=== PATIENT | male | born 1930 | race Caucasian/White ===

== ENCOUNTER 2016-08-05 10:06 | Inpatient (IN) | payer MEDICARE, BC ==
[~2016-08-05] VITALS: Ht 172.7 cm; Wt 43.2 kg
[~2016-08-05 10:06] MED LIST: ASPIRIN 32325 MG/TAB PO; FOLIC ACID800 MCG PO; LASIX 40MG TABL40 MG PO; MULTIPLE VITAMI1 CAP PO; NITROSTAT0.4 MG/TAB SL; PRAVACHOL 20MG20 MG PO; TENORMIN 2525 MG/TAB PO; VITAMIN C500 MG PO; VITAMIN D1000 IU PO
[2016-08-05] MEDS ORDERED: ASPIRIN 32325 MG/TAB PO (10:33)
[2016-08-05] MEDS ORDERED: IRON TABLETS325 MG PO (10:34)
[2016-08-05] MEDS ORDERED: CALCITRIOL PO (10:34)
[2016-08-05] MEDS ORDERED: FOLIC ACID800 MCG PO (10:35)
[2016-08-05] MEDS ORDERED: LASIX 20MG TABL20 MG PO (10:35)
[2016-08-05] MEDS ORDERED: NITROSTAT0.4 MG/TAB SL (10:35)
[2016-08-05] MEDS ORDERED: PRAVACHOL 20MG20 MG PO (10:35)
[2016-08-05] MEDS ORDERED: MULTIPLE VITAMI1 CAP PO (10:35)
[2016-08-05 10:47] LABS: MEAN CELL VOLUME 107 fl (80.0-100.0); MEAN CORPUSCULAR HGB CONC 31 g/dl (33.0-37.0); MEAN PLATELET VOLUME 10.8 fl (7.4-10.4); PLATELET COUNT 151 K/mm3 (130-400); RED BLOOD COUNT 3.08 M/mm3 (4.20-5.60); REDCELL DISTRIBUTION WIDTH-CV 13.2 % (11.5-14.5); WHITE BLOOD COUNT 7.2 K/mm3 (4.8-10.8)
[2016-08-05 10:50] LABS: INR 1.1 (0.8-3.0); PROTHROMBIN TIME 11.9 SECONDS (9.7-12.8)
[2016-08-05 10:53] LABS: HEMATOCRIT 32.9 % (42.0-52.0); HEMOGLOBIN 10.1 g/dl (13.5-18.0); MEAN CORPUSCULAR HEMOGLOBIN 33 pg (27.0-31.0); PARTIAL THROMBOPLASTIN TIME 23.9 SECONDS (26.0-37.0)
[2016-08-05 10:54] LABS: ADD PATHOLOGY DIFF REVIEW NO
[2016-08-05 11:03] LABS: ADJUSTED CALCIUM 9.2 mg/dL (8.4-10.2); ALANINE AMINOTRANSFERASE 26 U/L (21-72); ALBUMIN 3.8 gm/dL (3.5-5.0); ALKALINE PHOSPHATASE 83 U/L (50-136); ANION GAP 12 mmol/L (7-16); BILIRUBIN,TOTAL 0.9 mg/dL (0.0-1.0); BLOOD UREA NITROGEN 90 mg/dL (9-20); CARBON DIOXIDE 34 mmol/L (22-30); CHLORIDE 98 mmol/L (98-107); CREATINE KINASE 174 U/L (55-170); CREATININE, serum 2.37 mg/dL (0.66-1.25); GLUCOSE 99 mg/dL (74-106); LIPASE 122 U/L (23-300); POTASSIUM 4.6 mmol/L (3.4-5.0); SODIUM 144 mmol/L (137-145); TOTAL PROTEIN 7.4 gm/dL (6.4-8.2)
[2016-08-05 11:06] LABS: C-REACTIVE PROTEIN < 0.5 mg/dL (0.0-0.9)
[2016-08-05 11:13] LABS: B-TYPE NATRIURETIC PEPTIDE 2880 pg/mL (0-450)
[2016-08-05 11:16] LABS: BAND 2 % (0-10); EOSINOPHIL 1 % (0-4); NEUTROPHILS 69 % (42.0-75.2); PLATELET ESTIMATE NORMAL (NORMAL); TOTAL CELLS COUNTED 100
[2016-08-05 11:18] LABS: TROPONIN-I 0.257 ng/mL (0.000-0.034)
[2016-08-05 14:18] VITALS: BP 131/70; PULSE 72; TEMP 98
[2016-08-05 16:42] VITALS: BP 116/57; PULSE 69; TEMP 97.2
[2016-08-05 19:23] VITALS: BP 118/58; PULSE 69; TEMP 98.3
[2016-08-05 23:28] VITALS: BP 105/57; PULSE 69; TEMP 97.9
[2016-08-06 03:49] VITALS: BP 129/64; PULSE 70; TEMP 98
[2016-08-06 07:29] VITALS: BP 128/85; PULSE 74; TEMP 98
[2016-08-06 08:48] LABS: MEAN CELL VOLUME 107 fl (80.0-100.0); MEAN CORPUSCULAR HGB CONC 31 g/dl (33.0-37.0); MEAN PLATELET VOLUME 10.9 fl (7.4-10.4); PLATELET COUNT 163 K/mm3 (130-400); RED BLOOD COUNT 3.38 M/mm3 (4.20-5.60)
[2016-08-06 08:49] LABS: HEMOGLOBIN 11.3 g/dl (13.5-18.0); MEAN CORPUSCULAR HEMOGLOBIN 33 pg (27.0-31.0)
[2016-08-06 09:08] LABS: CALCIUM 9.4 mg/dL (8.4-10.2); CREATININE, serum 2.14 mg/dL (0.66-1.25); POTASSIUM 4.3 mmol/L (3.4-5.0)
[2016-08-06 09:39] LABS: THYROID STIMULATING HORMONE 2.8 uIU/mL (0.465-4.680)
[2016-08-06 11:54] VITALS: BP 131/65
[2016-08-06 12:35] LABS: PSA-TOTAL 0.47 ng/mL (0-4)
[2016-08-06 15:00] VITALS: BP 114/45; PULSE 61; TEMP 98.4
[2016-08-06 19:58] VITALS: BP 111/64; PULSE 75; TEMP 98.2
[2016-08-06 23:58] VITALS: BP 121/67; PULSE 70; TEMP 98.6
[2016-08-07 03:18] VITALS: BP 124/62; PULSE 72; TEMP 98.4
[2016-08-07 07:47] VITALS: BP 101/60; PULSE 80; TEMP 98.2
[2016-08-07 08:14] LABS: MEAN CELL VOLUME 105 fl (80.0-100.0); MEAN CORPUSCULAR HGB CONC 32 g/dl (33.0-37.0); MEAN PLATELET VOLUME 11.4 fl (7.4-10.4); PLATELET COUNT 158 K/mm3 (130-400); RED BLOOD COUNT 3.11 M/mm3 (4.20-5.60); WHITE BLOOD COUNT 5.6 K/mm3 (4.8-10.8)
[2016-08-07 08:20] LABS: ADJUSTED CALCIUM 9.4 mg/dL (8.4-10.2); ALBUMIN 3.5 gm/dL (3.5-5.0); CREATININE, serum 2.12 mg/dL (0.66-1.25); POTASSIUM 4.2 mmol/L (3.4-5.0); TOTAL PROTEIN 7.1 gm/dL (6.4-8.2)
[2016-08-07 08:21] LABS: HEMATOCRIT 32.6 % (42.0-52.0); HEMOGLOBIN 10.5 g/dl (13.5-18.0); MEAN CORPUSCULAR HEMOGLOBIN 34 pg (27.0-31.0)
[2016-08-07 12:25] VITALS: BP 93/51; PULSE 71; TEMP 97.6
[2016-08-07 13:58] LABS: ALBUMIN 3.7 gm/dL (3.5-5.0); CALCIUM 9.2 mg/dL (8.4-10.2); CREATININE, serum 2.23 mg/dL (0.66-1.25); PHOSPHOROUS 3.5 mg/dL (2.5-4.5)
[2016-08-07 17:27] VITALS: BP 128/66; PULSE 78; TEMP 97.6
[2016-08-07 19:57] VITALS: BP 123/59; PULSE 71; TEMP 97.5
[2016-08-08] VITALS (8 sets, daily range): BP systolic 107–124; BP diastolic 33–66; PULSE 54–90; TEMP 98–99
[2016-08-08 02:24] LABS: PH 6 (5-8); SQUAMOUS EPITHELIAL None Seen /hpf; URINE APPEARANCE Turbid; URINE BACTERIA Many /hpf; URINE BILIRUBIN Negative (NEGATIVE); URINE BLOOD 1+ (NEGATIVE); URINE COLOR Yellow; URINE GLUCOSE Negative (NEGATIVE); URINE KETONE Negative (NEGATIVE); URINE RBC 0-2 /hpf; URINE UROBILINOGEN Negative (NEGATIVE); URINE WBC >50 /hpf
[2016-08-08 07:59] LABS: ALBUMIN 3.3 gm/dL (3.5-5.0); CALCIUM 9.1 mg/dL (8.4-10.2); CREATININE, serum 2.32 mg/dL (0.66-1.25); POTASSIUM 3.9 mmol/L (3.4-5.0)
[2016-08-08 18:04] LABS: ADJUSTED CALCIUM 9.4 mg/dL (8.4-10.2); ALBUMIN 3.4 gm/dL (3.5-5.0); CALCIUM 8.9 mg/dL (8.4-10.2); CREATININE, serum 2.3 mg/dL (0.66-1.25); TOTAL PROTEIN 6.8 gm/dL (6.4-8.2)
[2016-08-08 18:24] LABS: TROPONIN-I 0.477 ng/mL (0.000-0.034)
[2016-08-09 03:04] VITALS: BP 146/72; PULSE 77; TEMP 97.1
[2016-08-09 04:24] VITALS: BP 124/56; PULSE 65; TEMP 97.6
[2016-08-09 08:14] LABS: ALBUMIN 3.2 gm/dL (3.5-5.0); CALCIUM 8.5 mg/dL (8.4-10.2); CREATININE, serum 2.14 mg/dL (0.66-1.25); PHOSPHOROUS 4.9 mg/dL (2.5-4.5); POTASSIUM 3.4 mmol/L (3.4-5.0)
[2016-08-09 11:28] VITALS: BP 101/44; PULSE 74; TEMP 97.5
[2016-08-09 15:49] VITALS: BP 150/56; PULSE 81; TEMP 98.4
[2016-08-09 19:41] VITALS: BP 109/46; PULSE 75; TEMP 97.8
[2016-08-09 23:59] VITALS: BP 111/72; PULSE 79; TEMP 98.2
[2016-08-10] VITALS (7 sets, daily range): BP systolic 90–117; BP diastolic 40–54; PULSE 59–86; TEMP 97.5–983.9
[2016-08-10 06:01] LABS: BILIRUBIN,TOTAL 0.6 mg/dL (0.0-1.0); CALCIUM 8.2 mg/dL (8.4-10.2); CREATININE, serum 2.09 mg/dL (0.66-1.25); PHOSPHOROUS 3.9 mg/dL (2.5-4.5); POTASSIUM 3.7 mmol/L (3.4-5.0); TOTAL PROTEIN 6.2 gm/dL (6.4-8.2)
[2016-08-10 06:39] LABS: TROPONIN-I 0.246 ng/mL (0.000-0.034)
[2016-08-11 03:59] VITALS: BP 121/55; PULSE 80; TEMP 98.2
[2016-08-11 05:40] LABS: MEAN CELL VOLUME 108 fl (80.0-100.0); MEAN CORPUSCULAR HGB CONC 31 g/dl (33.0-37.0); MEAN PLATELET VOLUME 11.3 fl (7.4-10.4); PLATELET COUNT 135 K/mm3 (130-400); RED BLOOD COUNT 2.36 M/mm3 (4.20-5.60); REDCELL DISTRIBUTION WIDTH-CV 13.1 % (11.5-14.5); WHITE BLOOD COUNT 5.5 K/mm3 (4.8-10.8)
[2016-08-11 05:44] LABS: HEMATOCRIT 25.4 % (42.0-52.0); HEMOGLOBIN 7.9 g/dl (13.5-18.0); MEAN CORPUSCULAR HEMOGLOBIN 33 pg (27.0-31.0)
[2016-08-11 05:52] LABS: ADJUSTED CALCIUM 9.2 mg/dL (8.4-10.2); ALBUMIN 2.9 gm/dL (3.5-5.0); BILIRUBIN,TOTAL 0.6 mg/dL (0.0-1.0); CALCIUM 8.3 mg/dL (8.4-10.2); CREATININE, serum 1.81 mg/dL (0.66-1.25); PHOSPHOROUS 2.7 mg/dL (2.5-4.5); POTASSIUM 3.4 mmol/L (3.4-5.0); TOTAL PROTEIN 6.1 gm/dL (6.4-8.2)
[2016-08-11 08:55] VITALS: BP 110/54; PULSE 85; TEMP 98.2
[2016-08-11 11:24] LABS: MAGNESIUM 2.1 mg/dL (1.6-2.3)
[2016-08-11 11:28] LABS: ARTERIAL BLD GAS O2 SATURATION 92.9 % (92-100); ARTERIAL BLD GAS TCO2 CT 32.5; ARTERIAL BLOOD GAS BASE EXCESS 7.6 (-2-2); ARTERIAL BLOOD GAS HCO3 31.3 meq/L (22-26); ARTERIAL BLOOD GAS PHT 7.51 C (7.35-7.45); ARTERIAL BLOOD GAS PO2 63.3 mmHg (80-100); ARTERIAL BLOOD GAS PO2T 63.3 (80-100); ARTERIAL BLOOD GAS pH 7.51 (7.35-7.45); ATS? YES; OXYHEMOGLOBIN 92.2 %
[2016-08-11 12:12] VITALS: BP 101/43; PULSE 74; TEMP 98.2
[2016-08-11 15:16] VITALS: BP 17/50; PULSE 80; TEMP 97.8
[2016-08-11 20:43] VITALS: BP 109/51; PULSE 78; TEMP 97.3
[2016-08-11 23:13] VITALS: BP 116/51; PULSE 76; TEMP 98.1
[2016-08-12 03:24] VITALS: BP 94/51; PULSE 75; TEMP 98.2
[2016-08-12 06:59] LABS: VITAMIN E 8.8 mg/L (())
[2016-08-12 09:16] VITALS: BP 118/55; PULSE 71; TEMP 97.2
[2016-08-12] MEDS ORDERED: LEVAQUIN 2250 MG/TAB PO (10:47)
[2016-08-12] MEDS ORDERED: MEGACE ORAL40 MG/ML PO (10:49)
[2016-08-12] MEDS ORDERED: TOPROL XL 25MG25 MG PO (10:55)
[2016-08-12 13:13] VITALS: BP 113/43; PULSE 70; TEMP 97.6
[2016-08-12 13:26] LABS: BASO % 0.2 % (0.0-2.0); EOS % 0.5 % (0-4.0); GRAN # 3.8 (1.4-6.5); GRAN % 65.1 % (42.2-75.2); LYMPH # 1.4 (1.2-3.4); MEAN CELL VOLUME 109 fl (80.0-100.0); MEAN CORPUSCULAR HGB CONC 31 g/dl (33.0-37.0); MEAN PLATELET VOLUME 11.4 fl (7.4-10.4); MONO # 0.6 (0.1-0.6); MONO % 9.9 % (1.7-9.3); PLATELET COUNT 155 K/mm3 (130-400); RED BLOOD COUNT 2.61 M/mm3 (4.20-5.60); REDCELL DISTRIBUTION WIDTH-CV 13.1 % (11.5-14.5); WHITE BLOOD COUNT 5.9 K/mm3 (4.8-10.8)
[2016-08-12 13:27] LABS: HEMATOCRIT 28.5 % (42.0-52.0); HEMOGLOBIN 8.7 g/dl (13.5-18.0); MEAN CORPUSCULAR HEMOGLOBIN 33 pg (27.0-31.0)
[2016-08-12 13:56] LABS: ALBUMIN 3.2 gm/dL (3.5-5.0); CALCIUM 8.8 mg/dL (8.4-10.2); CREATININE, serum 1.73 mg/dL (0.66-1.25); POTASSIUM 3.8 mmol/L (3.4-5.0)
[2016-08-12 16:18] VITALS: BP 113/43; PULSE 70; TEMP 97.6
== END 2016-08-12 17:56 | DRG 291 ==
LOC: COL.ER 10:06 → MEDICAL 11:59
PROVIDERS: Emergency Medicine; Internal Medicine; Internal Medicine Cardiovascular Disease; Internal Medicine Nephrology; Nurse Practitioner Family
PROC: 0DH67UZ Insertion of Feeding Device into Stomach, Via Natural or Artificial Opening (ICD-10-PCS; principal; 2016-08-08)
DX: I50.43 Acute on chronic combined systolic (congestive) and diastolic (congestive) heart failure (principal); E43 Unspecified severe protein-calorie malnutrition; J18.9 Pneumonia, unspecified organism; N17.9 Acute kidney failure, unspecified; Z68.1 Body mass index [BMI] 19.9 or less, adult; N39.0 Urinary tract infection, site not specified; E87.3 Alkalosis; S22.41XA Multiple fractures of ribs, right side, initial encounter for closed fracture; N18.3 Chronic kidney disease, stage 3 (moderate); D63.1 Anemia in chronic kidney disease; D46.9 Myelodysplastic syndrome, unspecified; I25.10 Atherosclerotic heart disease of native coronary artery without angina pectoris; Z95.1 Presence of aortocoronary bypass graft; Z95.5 Presence of coronary angioplasty implant and graft; K11.7 Disturbances of salivary secretion; N32.0 Bladder-neck obstruction; B96.20 Unspecified Escherichia coli [E. coli] as the cause of diseases classified elsewhere; I25.5 Ischemic cardiomyopathy; W18.30XA Fall on same level, unspecified, initial encounter
CPT/HCPCS: 99223-AI; 99231-AI; 99232-AI; 99233-AI; 99239; A9284; G0103; J1644; J1650; J1940; J1956; J2916; J7040

== ENCOUNTER 2016-08-28 15:25 | Outpatient (RCR) | payer OTHER ==
[2016-08-28] VITALS (10 sets, daily range): BP systolic 117–133; BP diastolic 46–57; PULSE 65–76; TEMP 97.3–98.7
== END 2016-08-29 06:24 | disposition home or self-care (01) ==
LOC: EUO 15:25
DX: N18.9 Chronic kidney disease, unspecified (principal); D63.1 Anemia in chronic kidney disease; E46 Unspecified protein-calorie malnutrition
CPT/HCPCS: J1940; J7050; P9016

== ENCOUNTER → 2016-08-28 | Outpatient (CLI) | payer OTHER, MEDICARE ==
[~2016-08-28] MED LIST changes: +CALCITRIOL PO; +IRON TABLETS325 MG PO; +LASIX 20MG TABL20 MG PO; +LEVAQUIN 2250 MG/TAB PO; +MEGACE ORAL40 MG/ML PO; +TOPROL XL 25MG25 MG PO
[2016-08-28 14:15] LABS: BASO % 0.5 % (0.0-2.0); EOS # 0.1 (0.0-0.7); EOS % 0.9 % (0-4.0); GRAN # 4.2 (1.4-6.5); GRAN % 63.7 % (42.2-75.2); LYMPH # 1.6 (1.2-3.4); LYMPH % 24.9 % (20.0-51.0); MEAN CELL VOLUME 110 fl (80.0-100.0); MEAN CORPUSCULAR HGB CONC 29 g/dl (33.0-37.0); MEAN PLATELET VOLUME 12.1 fl (7.4-10.4); MONO # 0.6 (0.1-0.6); MONO % 8.9 % (1.7-9.3); PLATELET COUNT 293 K/mm3 (130-400); RED BLOOD COUNT 2.06 M/mm3 (4.20-5.60); REDCELL DISTRIBUTION WIDTH-CV 13.8 % (11.5-14.5); WHITE BLOOD COUNT 6.5 K/mm3 (4.8-10.8)
[2016-08-28 14:19] LABS: CALCIUM 7.9 mg/dL (8.4-10.2); CREATININE, serum 1.67 mg/dL (0.66-1.25); POTASSIUM 5.5 mmol/L (3.4-5.0)
[2016-08-28 14:24] LABS: HEMATOCRIT 22.6 % (42.0-52.0); HEMOGLOBIN 6.6 g/dl (13.5-18.0); MEAN CORPUSCULAR HEMOGLOBIN 32 pg (27.0-31.0)
== END ==
LOC: ZCOL.LAB 13:37
PROVIDERS: Internal Medicine
DX: I12.9 Hypertensive chronic kidney disease with stage 1 through stage 4 chronic kidney disease, or unspecified chronic kidney disease (principal); N18.3 Chronic kidney disease, stage 3 (moderate); D63.1 Anemia in chronic kidney disease

== ENCOUNTER → 2016-09-02 | Outpatient (REF) ==
[2016-09-02 14:23] LABS: BASO # 0.1 (0.0-0.2); BASO % 0.5 % (0.0-2.0); EOS # 0.1 (0.0-0.7); EOS % 0.7 % (0-4.0); GRAN # 6.9 (1.4-6.5); GRAN % 67.1 % (42.2-75.2); LYMPH # 2.6 (1.2-3.4); LYMPH % 25.4 % (20.0-51.0); MEAN CELL VOLUME 105 fl (80.0-100.0); MEAN CORPUSCULAR HGB CONC 31 g/dl (33.0-37.0); MEAN PLATELET VOLUME 11.2 fl (7.4-10.4); MONO # 0.6 (0.1-0.6); MONO % 5.5 % (1.7-9.3); PLATELET COUNT 297 K/mm3 (130-400); RED BLOOD COUNT 3.39 M/mm3 (4.20-5.60); REDCELL DISTRIBUTION WIDTH-CV 14.4 % (11.5-14.5); WHITE BLOOD COUNT 10.3 K/mm3 (4.8-10.8)
[2016-09-02 14:25] LABS: HEMATOCRIT 35.6 % (42.0-52.0); HEMOGLOBIN 10.9 g/dl (13.5-18.0); MEAN CORPUSCULAR HEMOGLOBIN 32 pg (27.0-31.0)
[2016-09-02 14:33] LABS: CREATININE, serum 1.7 mg/dL (0.66-1.25); POTASSIUM 4.6 mmol/L (3.4-5.0)
== END ==
LOC: ZCOL.LAB 14:14
PROVIDERS: Internal Medicine
DX: Z01.89 Encounter for other specified special examinations (principal)

== ENCOUNTER → 2016-09-15 | Outpatient (REF) ==
[2016-09-15 10:07] LABS: PH 8 (5-8); SQUAMOUS EPITHELIAL None Seen /hpf; URINE APPEARANCE Hazy; URINE BACTERIA Rare /hpf; URINE BILIRUBIN Negative (NEGATIVE); URINE BLOOD Negative (NEGATIVE); URINE COLOR Yellow; URINE GLUCOSE Negative (NEGATIVE); URINE KETONE Negative (NEGATIVE); URINE RBC None Seen /hpf; URINE TRIPLE PHOSPHATE CRYSTAL Present /hpf; URINE UROBILINOGEN Negative (NEGATIVE); URINE WBC 20-50 /hpf
== END ==
LOC: ZLAB.STJ 09:39
PROVIDERS: Internal Medicine
DX: Z01.89 Encounter for other specified special examinations (principal)